=== PATIENT | male | born 1950 | race Caucasian/White ===

== ENCOUNTER 2017-11-18 08:39 | Emergency (ER) | payer MEDICARE, BC ==
[2017-11-18 08:54] VITALS: BP 112/63
--- NOTE | 2017-11-18 09:14 | EDM.PDOC ---
ED HPI GENERAL MEDICAL PROBLEM - General Chief Complaint: General Stated Complaint: BUMP IN MIDDLE OF CHEST Time Seen by Provider: 11/18/17 09:00 Source of Information: Reports: Patient History Limitations: Reports: No Limitations - History of Present Illness INITIAL COMMENTS - FREE TEXT/NARRATIVE: 67-year-old male who has lost several 100 pounds of weight after a gastric bypass years ago was lying in bed this morning having trouble sleeping when he noticed a firm mass in the upper abdomen and wanted it checked out. It is nontender. - Related Data Allergies Allergy/AdvReac Type Severity Reaction Status Date / Time No Known Allergies Allergy Verified 03/20/16 09:37 Home Meds: Home Meds Calcium Citrate 200 mg PO BID 02/22/15 [History] Cyanocobalamin (Vitamin B-12) [Vitamin B-12] 5,000 mcg SL DAILY 02/22/15 [ History] Multivitamin with Minerals [Multiple Vitamin] 1 tab PO BID 02/22/15 [History] Pyridoxine HCl [Vitamin B-6] 100 mg PO DAILY 02/22/15 [History] Thiamine [Vitamin B-1] 100 mg PO DAILY 02/22/15 [History] Cholecalciferol (Vitamin D3) [Vitamin D3] 1 tab PO DAILY 03/17/16 [History] Fludrocortisone [Florinef] 0.1 mg PO DAILY 03/17/16 [History] Vitamin B Complex [B Complex] 1 tab PO DAILY 03/17/16 [History] Past Medical History HEENT History: Reports: Cataract Cardiovascular History: Reports: High Cholesterol Genitourinary History: Reports: None Musculoskeletal History: Reports: Fracture Psychiatric History: Reports: Depression Other Psychiatric History: insomnia Endocrine/Metabolic History: Reports: Diabetes, Type II, Obesity/BMI 30+ Hematologic History: Reports: B12 Deficiency - Infectious Disease History Infectious Disease History: Reports: Other (See Below) Other Infectious Disease History: UNKNOWN - Past Surgical History HEENT Surgical History: Reports: Cataract Surgery GI Surgical History: Reports: Bariatric Procedure, Colonoscopy Other Male Surgeries/Procedures: vasectomy Musculoskeletal Surgical History: Reports: Carpal Tunnel Social & Family History - Tobacco Use Smoking Status *Q: Former Smoker Years of Tobacco use: 15 Packs/Tins Daily: 0 Used Tobacco, but Quit: Yes Month Tobacco Last Used: 15 YEARS AGO Second Hand Smoke Exposure: No - Caffeine Use Caffeine Use: Reports: None - Alcohol Use Days Per Week of Alcohol Use: 0 - Recreational Drug Use Recreational Drug Use: No ED ROS GENERAL - Review of Systems Review Of Systems: See Below Constitutional: Denies: Fever, Chills Respiratory: Denies: Shortness of Breath Cardiovascular: Denies: Chest Pain GI/Abdominal: Denies: Nausea, Vomiting Psychiatric: Reports: Anxiety (Difficulty sleeping) ED EXAM, GENERAL - Physical Exam Exam: See Below Exam Limited By: No Limitations General Appearance: Alert, No Apparent Distress Respiratory/Chest: No Respiratory Distress Cardiovascular: Regular Rate, Rhythm GI/Abdominal: Other (Patient now has a prominent xiphoid process which is his concern. Exam is otherwise normal.) Course - Vital Signs Last Recorded V/S: Last Vital Signs Temp 97.2 F 11/18/17 08:53 Pulse 71 11/18/17 08:53 Resp 16 11/18/17 08:53 BP 112/63 11/18/17 08:53 Pulse Ox 100 11/18/17 08:53 - Re-Assessments/Exams Free Text/Narrative Re-Assessment/Exam: 11/18/17 09:12 Patient was reassured that this is normal anatomy. Departure - Departure Time of Disposition: 09:36 Disposition: Home, Self-Care 01 Condition: Good Clinical Impression: Normal exam, Insomnia - Discharge Information Instructions: Insomnia Referrals: PCP,None [Primary Care Provider] - Forms: ED Department Discharge Care Plan Goals: No treatment needed, follow up with your regular doctor to discuss your difficulty sleeping.
== END 2017-11-18 09:35 | disposition home or self-care (01) ==
LOC: JP.ED 08:39
DX: G47.00 Insomnia, unspecified (principal); E78.00 Pure hypercholesterolemia, unspecified; E11.9 Type 2 diabetes mellitus without complications; E66.9 Obesity, unspecified; Z87.891 Personal history of nicotine dependence; Z79.899 Other long term (current) drug therapy
CPT/HCPCS: 99283; 99285

== ENCOUNTER 2017-12-11 06:42 | Emergency (ER) | payer MEDICARE, BC ==
--- NOTE | 2017-12-11 07:19 | EDM.PDOC ---
ED HPI GENERAL MEDICAL PROBLEM - General Chief Complaint: Chest Pain Stated Complaint: CHEST PAIN Time Seen by Provider: 12/11/17 07:00 Source of Information: Reports: Patient History Limitations: Reports: No Limitations - History of Present Illness INITIAL COMMENTS - FREE TEXT/NARRATIVE: pt arrived with rt sided chest pain and a rash. His rt chest is tender to lite touch. Onset: Other ( last 2 days. ) Duration: Hour(s): Location: Reports: Chest Quality: Reports: Sharp, Stabbing, Other (hurts with lite touch to the area. ) Associated Symptoms: Reports: Chest Pain, Other (pt has had a cough. ) Right Chest Pain Score (Numeric/FACES): 8 - Related Data Allergies Allergy/AdvReac Type Severity Reaction Status Date / Time No Known Allergies Allergy Verified 03/20/16 09:37 Home Meds: Home Meds Calcium Citrate 200 mg PO BID 02/22/15 [History] Cyanocobalamin (Vitamin B-12) [Vitamin B-12] 5,000 mcg SL DAILY 02/22/15 [ History] Multivitamin with Minerals [Multiple Vitamin] 1 tab PO BID 02/22/15 [History] Pyridoxine HCl [Vitamin B-6] 100 mg PO DAILY 02/22/15 [History] Thiamine [Vitamin B-1] 100 mg PO DAILY 02/22/15 [History] Cholecalciferol (Vitamin D3) [Vitamin D3] 1 tab PO DAILY 03/17/16 [History] Fludrocortisone [Florinef] 0.1 mg PO DAILY 03/17/16 [History] Vitamin B Complex [B Complex] 1 tab PO DAILY 03/17/16 [History] metFORMIN HCl [Metformin HCl ER] 12/11/17 [History] Past Medical History HEENT History: Reports: Cataract Cardiovascular History: Reports: High Cholesterol Genitourinary History: Reports: None Musculoskeletal History: Reports: Fracture Psychiatric History: Reports: Depression Other Psychiatric History: insomnia Endocrine/Metabolic History: Reports: Diabetes, Type II, Obesity/BMI 30+ Hematologic History: Reports: B12 Deficiency - Infectious Disease History Infectious Disease History: Reports: Other (See Below) Other Infectious Disease History: UNKNOWN - Past Surgical History HEENT Surgical History: Reports: Cataract Surgery GI Surgical History: Reports: Bariatric Procedure, Colonoscopy Other Male Surgeries/Procedures: vasectomy Musculoskeletal Surgical History: Reports: Carpal Tunnel Social & Family History - Tobacco Use Smoking Status *Q: Never Smoker Years of Tobacco use: 15 Packs/Tins Daily: 0 Used Tobacco, but Quit: Yes Month Tobacco Last Used: 15 YEARS AGO Second Hand Smoke Exposure: No - Caffeine Use Caffeine Use: Reports: None - Alcohol Use Days Per Week of Alcohol Use: 0 - Recreational Drug Use Recreational Drug Use: No ED ROS GENERAL - Review of Systems Review Of Systems: See Below Constitutional: Reports: No Symptoms HEENT: Reports: No Symptoms Respiratory: Reports: Other ( pt has pain in his rt chest. The area is tender to lite touch. ) Cardiovascular: Reports: No Symptoms Endocrine: Reports: No Symptoms GI/Abdominal: Reports: No Symptoms : Reports: No Symptoms Musculoskeletal: Reports: No Symptoms Skin: Reports: No Symptoms Neurological: Reports: No Symptoms Psychiatric: Reports: No Symptoms Hematologic/Lymphatic: Reports: No Symptoms ED EXAM, GENERAL - Physical Exam Exam: See Below Free Text/Narrative:: pt arrived with pain in the rt side of his chest. He states this has been going on for 2 days. He also has a rash which is under the axilla and some on the anterior chest. He hurts when he moves. and takes a deep breath/ Exam Limited By: No Limitations General Appearance: Alert, Moderate Distress Ears: Normal TMs Nose: Normal Inspection Throat/Mouth: Normal Inspection Head: Atraumatic Neck: Normal Inspection Respiratory/Chest: Other (pt has pain with deep breathing and movement. He has a rash under the axilla and some on the anterior chest. He is super sensitive over the area. This rash does have vesicles. Although this was not a classic rash it certainly most likely is shingles. ) Cardiovascular: Regular Rate, Rhythm GI/Abdominal: Soft, Non-Tender (Male) Exam: Deferred Rectal (Males) Exam: Deferred Back Exam: Normal Inspection Extremities: Normal Inspection Neurological: Alert, Oriented, Normal Cognition Psychiatric: Normal Affect Course - Vital Signs Last Recorded V/S: Last Vital Signs Temp 34.0 C L 12/11/17 06:56 Pulse 74 12/11/17 07:48 Resp 18 12/11/17 07:48 BP 124/78 12/11/17 07:48 Pulse Ox 95 12/11/17 07:48 - Orders/Labs/Meds Orders: Active Orders 24 hr Category Date Time Status EKG Documentation Completion [RC] ASDIRECTED Care 12/11/17 06:54 Active Chest 1V Frontal [CR] Stat Exams 12/11/17 07:14 Taken UA W/MICROSCOPIC [URIN] Urgent Lab 12/11/17 07:13 Uncollected EKG 12 Lead [EK] Routine Ther 12/11/17 06:54 Ordered Labs: Laboratory Tests 12/11/17 12/11/17 12/11/17 Range/Units 07:20 07:20 07:20 WBC 4.3 L (4.5-11.0) K/uL RBC 4.25 L (4.30-5.90) M/uL Hgb 13.6 (12.0-15.0) g/dL Hct 39.7 L (40.0-54.0) % MCV 93 (80-98) fL MCH 32 H (27-31) pg MCHC 34 (32-36) % Plt Count 182 (150-400) K/uL Neut % (Auto) 58 (36-66) % Lymph % (Auto) 22 L (24-44) % [place] % (Auto) 17 H (2-6) % Eos % (Auto) 2 (2-4) % Baso % (Auto) 2 H (0-1) % Sodium 141 (140-148) mmol/L Potassium 3.0 L (3.6-5.2) mmol/L Chloride 100 (100-108) mmol/L Carbon Dioxide 31 (21-32) mmol/L Anion Gap 13.0 (5.0-14.0) mmol/L BUN 11 (7-18) mg/dL Creatinine 1.0 (0.8-1.3) mg/dL Est Cr Clr Drug Dosing 73.00 mL/min Estimated GFR (MDRD) > 60 (>60) Glucose 184 H (74-106) mg/dL Calcium 8.5 (8.5-10.1) mg/dL Total Bilirubin 0.7 (0.2-1.0) mg/dL AST 24 (15-37) U/L ALT 26 (12-78) U/L Alkaline Phosphatase 103 (46-116) U/L Troponin I < 0.017 (0.000-0.056) ng/mL Total Protein 6.2 L (6.4-8.2) g/dL Albumin 3.1 L (3.4-5.0) g/dL Globulin 3.1 (2.3-3.5) g/dL Albumin/Globulin Ratio 1.0 L (1.2-2.2) Meds: Medications Discontinued Medications Generic Name Dose Route Start Last Admin Trade Name Freq PRN Reason Stop Dose Admin Potassium Chloride 20 meq 12/11/17 08:15 12/11/17 08:21 Klor-Con M20 PO 12/11/17 08:16 20 meq ONETIME ONE Administration - Re-Assessments/Exams Free Text/Narrative Re-Assessment/Exam: 12/11/17 08:21 pt has a clear chest xray and a normal wbc-- on the low side, and a normal trop. Departure - Departure Time of Disposition: 08:21 Disposition: Home, Self-Care 01 Condition: Fair Clinical Impression: Shingles Instructions: Shingles, [id number] Referrals: PCP,None [Primary Care Provider] - Forms: ED Department Discharge Care Plan Goals: recheck with regular Dr !st week in Dec. He already has an appt at that time. Zovirax 400mg tid for 5 days, norco 5/325 q6h prn for pain. High k diet - My Orders Last 24 Hours: My Active Orders 12/11/17 07:13 UA W/MICROSCOPIC [URIN] Urgent 12/11/17 07:14 Chest 1V Frontal [CR] Stat - Assessment/Plan Last 24 Hours: My Active Orders 12/11/17 07:13 UA W/MICROSCOPIC [URIN] Urgent 12/11/17 07:14 Chest 1V Frontal [CR] Stat
[2017-12-11 07:49] VITALS: BP 124/78
[2017-12-11] MEDS ORDERED: Potassium Chloride 20 MEQ Tab.ER PO ONE (08:15)
--- NOTE | 2017-12-11 09:10 | CR ---
Chest 1V Frontal HISTORY: Chest pain. COMPARISON: 12/30/2014 chest x-ray. FINDINGS: Cardiac size and pulmonary vessels are normal. Slightly rotated film. No focal infiltrates or effusions.
== END 2017-12-11 08:37 | disposition home or self-care (01) ==
LOC: JP.ED 06:42
DX: B02.9 Zoster without complications (principal); R07.1 Chest pain on breathing; E78.00 Pure hypercholesterolemia, unspecified; Z79.84 Long term (current) use of oral hypoglycemic drugs; Z79.899 Other long term (current) drug therapy
CPT/HCPCS: 36415; 71045; 80053; 84484; 85025; 93005; 99285; A9270; 93010; 99283

== ENCOUNTER 2017-12-14 14:35 | Observation (INO) | payer MEDICARE, BC ==
[2017-12-14] MEDS ORDERED: Midazolam 1 MG/ML 2 ML SDV IVPUSH ONE ×2 (14:51→15:29)
[2017-12-14] MEDS ORDERED: Midazolam 1 MG/ML 5 ML SDV ONE (14:52)
[2017-12-14] MEDS ORDERED: Haloperidol Lactate 5 MG/ML SDV IVPUSH ONE ×3 (15:02→16:14)
--- NOTE | 2017-12-14 15:02 | EDM.PDOC ---
ED HPI GENERAL MEDICAL PROBLEM - General Chief Complaint: Behavioral/Psych Stated Complaint: SLURRED SPEECH VIA AMBULANCE Time Seen by Provider: 12/14/17 14:40 Source of Information: Reports: Family, Old Records History Limitations: Reports: Other (sister too flustered to give a good history , patient not able to provide any history, very limited records immediately available. ) - History of Present Illness INITIAL COMMENTS - FREE TEXT/NARRATIVE: 67 yo male has not been taking his medications recently. Has a PHx of depression , orthostatic hypotension, neuropathy, CRF, bariatric surgery, CVA, and AODM. Was seen in the clinic this morning for some mild confusion, orthostasis and was given a liter of NS. His sister took him to [place] and noted he was having some trouble speaking. She then took him home and was able to assist him into the house. With sx's continuing to wax and wane she called 911. EMS said he was hypertensive, other vitals stable. His level of confusion waxed and waned during transport. Onset: Today Onset Date: 12/14/17 Duration: Minutes: Location: Reports: Generalized Quality: Reports: Other (no known pain) Severity: Severe Improves with: Reports: None Worsens with: Reports: Other (? time) Context: Reports: Other (Hx of medical non-compliance and depression. ) Associated Symptoms: Reports: Confusion, Other (trouble speaking). Denies: Fever/Chills Treatments POST OFFICE CLERK: Reports: Other (see below) (none) - Related Data Allergies Allergy/AdvReac Type Severity Reaction Status Date / Time No Known Allergies Allergy Verified 03/20/16 09:37 Home Meds: Home Meds Calcium Citrate 200 mg PO BID 02/22/15 [History] Cyanocobalamin (Vitamin B-12) [Vitamin B-12] 5,000 mcg SL DAILY 02/22/15 [ History] Multivitamin with Minerals [Multiple Vitamin] 1 tab PO BID 02/22/15 [History] Pyridoxine HCl [Vitamin B-6] 100 mg PO DAILY 02/22/15 [History] Thiamine [Vitamin B-1] 100 mg PO DAILY 02/22/15 [History] Cholecalciferol (Vitamin D3) [Vitamin D3] 1 tab PO DAILY 03/17/16 [History] Fludrocortisone [Florinef] 0.1 mg PO DAILY 03/17/16 [History] Vitamin B Complex [B Complex] 1 tab PO DAILY 03/17/16 [History] metFORMIN HCl [Metformin HCl ER] 12/11/17 [History] Past Medical History HEENT History: Reports: Cataract Cardiovascular History: Reports: High Cholesterol Genitourinary History: Reports: None Musculoskeletal History: Reports: Fracture Psychiatric History: Reports: Depression Other Psychiatric History: insomnia Endocrine/Metabolic History: Reports: Diabetes, Type II, Obesity/BMI 30+ Hematologic History: Reports: B12 Deficiency - Infectious Disease History Infectious Disease History: Reports: Other (See Below) Other Infectious Disease History: UNKNOWN - Past Surgical History HEENT Surgical History: Reports: Cataract Surgery GI Surgical History: Reports: Bariatric Procedure, Colonoscopy Other Male Surgeries/Procedures: vasectomy Musculoskeletal Surgical History: Reports: Carpal Tunnel Social & Family History - Tobacco Use Smoking Status *Q: Never Smoker Years of Tobacco use: 15 Packs/Tins Daily: 0 Used Tobacco, but Quit: Yes Month Tobacco Last Used: 15 YEARS AGO Second Hand Smoke Exposure: No - Caffeine Use Caffeine Use: Reports: None - Alcohol Use Days Per Week of Alcohol Use: 0 - Recreational Drug Use Recreational Drug Use: No ED ROS GENERAL - Review of Systems Review Of Systems: Unable To Obtain (except that his sister is able to relate, she does not live with him.) - Physical Exam Exam: See Below Exam Limited By: Other (not able to fully cooperate with neuro exam due to confusion.) General Appearance: Alert, WD/WN, Mild Distress Eye Exam: Bilateral Eye: Normal Inspection Ears: Normal External Exam, Normal Canal, Hearing Grossly Normal Nose: Normal Inspection, Normal Mucosa, No Blood Throat/Mouth: Normal Inspection, Normal Lips, Normal Voice, No Airway Compromise Head Exam: Atraumatic, Normocephalic Neck: Normal Inspection, Supple, Non-Tender Respiratory/Chest: No Respiratory Distress, Lungs Clear, Normal Breath Sounds, No Accessory Muscle Use, Chest Non-Tender Cardiovascular: Regular Rate, Rhythm GI/Abdominal: Normal Bowel Sounds, Soft, Non-Tender, No Distention Neuro Exam (Abbreviated): Alert, CN II-XII Intact, No Motor/Sensory Deficits, Confused, Disoriented, Slow to Respond Back Exam: Normal Inspection. No: CVA Tenderness (R), CVA Tenderness (L) Extremities: Normal Inspection, Normal Range of Motion, Non-Tender, No Pedal Edema Psychiatric: Flat Affect Skin Exam: Warm, Dry, Intact, Normal Color, No Rash EKG INTERPRETATION EKG Date: 12/14/17 Time: 14:35 Rhythm: NSR Rate (Beats/Min): 85 [place]: Normal P-Wave: Present QRS: Normal ST-T: Normal QT: Normal Comparison: No Change EKG Interpretation Comments: Poor R wave progression anterior leads, not new. Course - Vital Signs Text/Narrative:: Dr. Gaytan called, will see in [id number] Last Recorded V/S: Last Vital Signs Temp 35.2 C 12/14/17 14:38 Pulse 95 12/14/17 14:38 Resp 14 12/14/17 14:38 BP 154/86 H 12/14/17 14:38 Pulse Ox 99 12/14/17 14:38 - Orders/Labs/Meds Orders: Active Orders 24 hr Category Date Time Status Cardiac Monitoring [RC] .As Directed Care 12/14/17 14:49 Active EKG Documentation Completion [RC] ASDIRECTED Care 12/14/17 14:49 Active Bradford Catheter Insertion [Insert Urinary Catheter] [OM. Care 12/14/17 15:45 Ordered PC] Q24H Urinary Catheter Assessment [RC] ASDIRECTED Care 12/14/17 15:36 Active Head wo Cont [CT] Stat Exams 12/14/17 14:46 Taken Magnesium Sulfate/Water [Magnesium Sulfate 2 GM in Med 12/14/17 16:18 Active Water 50 ML] 2 gm Premix Bag 1 bag IV ONETIME NS + KCl 20mEq/L [Normal Saline with 20 mEq KCl] 1,000 Med 12/14/17 16:00 Active ml IV ASDIRECTED Potassium Chloride 20 meq Med 12/14/17 16:30 Active Lidocaine 1% [Xylocaine 1%] 2 ml Sodium Chloride 0.9% [Normal Saline] 100 ml IV ONETIME Restraint Initiate Non-VIOL/Non-SD [OM.PC] Stat Oth 12/14/17 15:48 Ordered EKG 12 Lead [EK] Routine Ther 12/14/17 14:48 Ordered Medication Orders Potassium Chloride/Sodium Chloride (Normal Saline With 20 Meq Kcl) 1,000 mls @ 100 mls/hr IV ASDIRECTED TRINIDAD Last Admin: 12/14/17 16:45 Dose: 100 mls/hr Potassium Chloride 20 meq/Lidocaine HCl 2 ml/ Sodium Chloride 112 mls @ 56 mls/ hr IV ONETIME ONE Stop: 12/14/17 18:29 Last Admin: 12/14/17 16:45 Dose: 56 mls/hr Magnesium Sulfate 2 gm/ Premix 50 mls @ 12.5 mls/hr IV ONETIME ONE Stop: 12/14/17 20:17 Last Admin: 12/14/17 16:45 Dose: 12.5 mls/hr Labs: Laboratory Tests 12/14/17 12/14/17 12/14/17 Range/Units 14:50 14:50 15:47 WBC 6.2 (4.5-11.0) K/uL RBC 4.27 L (4.30-5.90) M/uL Hgb 14.0 (12.0-15.0) g/dL Hct 39.9 L (40.0-54.0) % MCV 93 (80-98) fL MCH 33 H (27-31) pg MCHC 35 (32-36) % Plt Count 225 (150-400) K/uL Sodium 138 L (140-148) mmol/L Potassium 2.9 L* (3.6-5.2) mmol/L Chloride 100 (100-108) mmol/L Carbon Dioxide 26 (21-32) mmol/L Anion Gap 14.9 H (5.0-14.0) mmol/L BUN 20 H D (7-18) mg/dL Creatinine 0.9 (0.8-1.3) mg/dL Est Cr Clr Drug Dosing 81.11 mL/min Estimated GFR (MDRD) > 60 (>60) Glucose 173 H (74-106) mg/dL Calcium 8.4 L (8.5-10.1) mg/dL Magnesium (1.8-2.4) mg/dL Troponin I < 0.017 (0.000-0.056) ng/mL Urine Color Yellow Urine Appearance Slightly cloudy Urine pH 7.0 (4.5-8.0) Ur Specific [place] 1.010 (1.008-1.030) Urine Protein Negative (NEGATIVE) mg/dL Urine Glucose (UA) 50 H (NEGATIVE) mg/dL Urine Ketones Negative (NEGATIVE) mg/dL Urine Occult Blood Negative (NEGATIVE) Urine Nitrite Negative (NEGAITVE) Urine Bilirubin Negative (NEGATIVE) Urine Urobilinogen Normal (NORMAL) mg/dL Ur Leukocyte Esterase Negative (NEGATIVE) Urine RBC 0-5 (0-5) Urine WBC 0-5 (0-5) Ur Epithelial Cells Rare Amorphous Sediment Not seen Urine Bacteria Few Urine Mucus Not seen Urine Other 12/14/17 Range/Units 15:48 WBC (4.5-11.0) K/uL RBC (4.30-5.90) M/uL Hgb (12.0-15.0) g/dL Hct (40.0-54.0) % MCV (80-98) fL MCH (27-31) pg MCHC (32-36) % Plt Count (150-400) K/uL Sodium (140-148) mmol/L Potassium (3.6-5.2) mmol/L Chloride (100-108) mmol/L Carbon Dioxide (21-32) mmol/L Anion Gap (5.0-14.0) mmol/L BUN (7-18) mg/dL Creatinine (0.8-1.3) mg/dL Est Cr Clr Drug Dosing mL/min Estimated GFR (MDRD) (>60) Glucose (74-106) mg/dL Calcium (8.5-10.1) mg/dL Magnesium 1.2 L (1.8-2.4) mg/dL Troponin I (0.000-0.056) ng/mL Urine Color Urine Appearance Urine pH (4.5-8.0) Ur Specific [place] (1.008-1.030) Urine Protein (NEGATIVE) mg/dL Urine Glucose (UA) (NEGATIVE) mg/dL Urine Ketones (NEGATIVE) mg/dL Urine Occult Blood (NEGATIVE) Urine Nitrite (NEGAITVE) Urine Bilirubin (NEGATIVE) Urine Urobilinogen (NORMAL) mg/dL Ur Leukocyte Esterase (NEGATIVE) Urine RBC (0-5) Urine WBC (0-5) Ur Epithelial Cells Amorphous Sediment Urine Bacteria Urine Mucus Urine Other Meds: Medications Generic Name Dose Route Start Last Admin Trade Name Freq PRN Reason Stop Dose Admin Potassium Chloride/Sodium Chloride 1,000 mls @ 100 mls/hr 12/14/17 16:00 12/30 16:45 Normal Saline With 20 Meq Kcl IV 100 mls/hr ASDIRECTED TRINIDAD Administration Potassium Chloride 20 meq/ 112 mls @ 56 mls/hr 12/14/17 16:30 12/14/17 16:45 Lidocaine HCl 2 ml/ Sodium IV 12/14/17 18:29 56 mls/hr Chloride ONETIME ONE Administration Magnesium Sulfate 2 gm/ Premix 50 mls @ 12.5 mls/hr 12/14/17 16:18 12/14/17 16:45 IV 12/14/17 20:17 12.5 mls/hr ONETIME ONE Administration Discontinued Medications Generic Name Dose Route Start Last Admin Trade Name Moi PRN Reason Stop Dose Admin Haloperidol Lactate 2 mg 12/14/17 15:02 12/14/17 15:18 Haldol IVPUSH 12/14/17 15:03 2 mg ONETIME ONE Administration Haloperidol Lactate 2 mg 12/14/17 15:30 12/14/17 15:51 Haldol IVPUSH 12/14/17 15:31 2 mg ONETIME ONE Administration Haloperidol Lactate 1 mg 12/14/17 16:14 12/14/17 16:39 Haldol IVPUSH 12/14/17 16:15 1 mg ONETIME ONE Administration Lidocaine 700 mg 12/14/17 16:29 Lidoderm 5% TOP 12/14/17 16:30 ONETIME ONE Midazolam HCl 3 mg 12/14/17 14:51 12/14/17 15:00 Versed 1 Mg/Ml IVPUSH 12/14/17 14:52 3 mg ONETIME ONE Administration Midazolam HCl 2 mg 12/14/17 15:29 12/14/17 15:30 Versed 1 Mg/Ml IVPUSH 12/14/17 15:30 2 mg ONETIME ONE Administration - Radiology Interpretation Free Text/Narrative:: Head CT scan-negative for acute processes CT Results Date: 12/14/17 CT Results Time: 15:15 Departure - Departure Time of Disposition: 17:20 Disposition: Admitted As Inpatient 65 Condition: Poor Clinical Impression: Medical non-compliance, Hypokalemia, Hypomagnesemia, Acute delirium, Elevated glucose level - Discharge Information Referrals: Tamir Brennan PA [Primary Care Provider] - Forms: ED Department Discharge - My Orders Last 24 Hours: My Active Orders 12/14/17 14:46 Head wo Cont [CT] Stat 12/14/17 14:48 EKG 12 Lead [EK] Routine 02/02/18 14:49 Cardiac Monitoring [RC] .As Directed EKG Documentation Completion [RC] ASDIRECTED 12/14/17 15:36 Urinary Catheter Assessment [RC] ASDIRECTED 12/14/17 15:45 Bradford Catheter Insertion [Insert Urinary Catheter] [OM.PC] Q24H 12/14/17 15:48 Restraint Initiate Non-VIOL/Non-SD [OM.PC] Stat 12/14/17 16:00 NS + KCl 20mEq/L [Normal Saline with 20 mEq KCl] 1,000 ml IV ASDIRECTED 12/14/17 16:18 Magnesium Sulfate/Water [Magnesium Sulfate 2 GM in Water 50 ML] 2 gm Premix Bag 1 bag IV ONETIME 12/14/17 16:30 Potassium Chloride 20 meq Lidocaine 1% [Xylocaine 1%] 2 ml Sodium Chloride 0.9 % [Normal Saline] 100 ml IV ONETIME - Assessment/Plan Last 24 Hours: My Active Orders 12/14/17 14:46 Head wo Cont [CT] Stat 12/14/17 14:48 EKG 12 Lead [EK] Routine 12/14/17 14:49 Cardiac Monitoring [RC] .As Directed EKG Documentation Completion [RC] ASDIRECTED 12/14/17 15:36 Urinary Catheter Assessment [RC] ASDIRECTED 12/14/17 15:45 Bradford Catheter Insertion [Insert Urinary Catheter] [OM.PC] Q24H 12/14/17 15:48 Restraint Initiate Non-VIOL/Non-SD [OM.PC] Stat 12/14/17 16:00 NS + KCl 20mEq/L [Normal Saline with 20 mEq KCl] 1,000 ml IV ASDIRECTED 12/14/17 16:18 Magnesium Sulfate/Water [Magnesium Sulfate 2 GM in Water 50 ML] 2 gm Premix Bag 1 bag IV ONETIME 12/14/17 16:30 Potassium Chloride 20 meq Lidocaine 1% [Xylocaine 1%] 2 ml Sodium Chloride 0.9 % [Normal Saline] 100 ml IV ONETIME
[2017-12-14] MEDS ORDERED: Potassium Chloride 20 MEQ in Premix Bag 1 BAG IV ONE (15:48)
[2017-12-14] MEDS ORDERED: NS + KCl 20mEq/L 1,000 ML IV SCH ×2 (16:00→17:58)
[2017-12-14] MEDS ORDERED: Magnesium Sulfate/Water 2 GM in Premix Bag 1 BAG IV ONE (16:18)
[2017-12-14] MEDS ORDERED: Lidocaine 5% 700 MG Patch TOP ONE (16:29)
[2017-12-14] MEDS ORDERED: Potassium Chloride 20 MEQ, Lidocaine 1% 2 ML in Sodium Chloride 0.9% 100 ML IV ONE (16:30)
[2017-12-14] MEDS ORDERED: Polyethylene Glycol 3350 Powder 17 GM Packet PO PRN (17:58)
[2017-12-14] MEDS ORDERED: Enoxaparin 40 MG/0.4 ML Syringe SUBCUT SCH (17:58)
[2017-12-14] MEDS ORDERED: 50% Dextrose in Water 50 ML Syringe IV PRN (17:58)
[2017-12-14] MEDS ORDERED: oxyCODONE 5 MG Tab PO PRN (17:58)
[2017-12-14] MEDS ORDERED: Ondansetron 4 MG/2 ML SDV IV PRN (17:58)
[2017-12-14] MEDS ORDERED: Magnesium Hydroxide 400 MG/5 ML Susp 30 ML Cup PO PRN (17:58)
[2017-12-14] MEDS ORDERED: Haloperidol Lactate 5 MG/ML SDV IVPUSH PRN (17:58)
[2017-12-14] MEDS ORDERED: Acetaminophen 325 MG Tab PO PRN (17:58)
[2017-12-14] MEDS ORDERED: Potassium Chloride 20 MEQ Tab.ER PO ONE ×2 (17:58→22:00)
[2017-12-14] MEDS ORDERED: Glucose Gel 15 GM in 37.5 GM Tube PO PRN (17:58)
[2017-12-14] MEDS ORDERED: Sodium Chloride 0.9% 10 ML Syringe FLUSH PRN (17:58)
--- NOTE | 2017-12-14 18:21 | PCM.HP ---
H&P History of Present Illness - General Date of Service: 12/14/17 Admit Problem/Dx: Source of Information: Family, Old Records, Provider, RN Notes Reviewed History Limitations: Reports: Altered Mental Status (Hyperactive delirium) - History of Present Illness Initial Comments - Free Text/Narative: Mr. Flores is a 67-year-old gentleman who is admitted to observation status through the emergency department for further evaluation and management of hyperactive delirium. Mr. Flores is confused and agitated the present time, unable to provide significant history concerning recent symptoms or events. His sister is present and provides much of the history. She reports that he has become more irritable over the past few years and also progressively more forgetful. There is evidence that he is not been taking his prescribed medications on a regular basis. Yesterday developed acute pain in his right chest, on evaluation in the emergency department was noted to have herpes zoster causing his symptoms. He was prescribed oxycodone and acyclovir. His sister came to see him today to bring him in for an appointment at the clinic and noted that he was more confused and agitated than usual. He does have a known history of orthostatic hypotension and had not been taking his Florinef. Plan was to give him some IV fluids in the clinic, he became more agitated and difficult to manage so he was brought over to the emergency department. Laboratory studies do show significant hypokalemia and hypomagnesemia. There is been no evidence of underlying infection and CT scan of the head without contrast was unremarkable. He has improved during his time in the emergency department and is more conversant but still confused and somewhat agitated. - Related Data Allergies/Adverse Reactions: Allergies Allergy/AdvReac Type Severity Reaction Status Date / Time No Known Allergies Allergy Verified 03/20/16 09:37 Home Medications: Home Meds Calcium Citrate 200 mg PO BID 02/22/15 [History] Cyanocobalamin (Vitamin B-12) [Vitamin B-12] 5,000 mcg SL DAILY 02/22/15 [ History] Multivitamin with Minerals [Multiple Vitamin] 1 tab PO BID 02/22/15 [History] Pyridoxine HCl [Vitamin B-6] 100 mg PO DAILY 02/22/15 [History] Thiamine [Vitamin B-1] 100 mg PO DAILY 02/22/15 [History] Cholecalciferol (Vitamin D3) [Vitamin D3] 1 tab PO DAILY 03/17/16 [History] Fludrocortisone [Florinef] 0.1 mg PO DAILY 03/17/16 [History] Vitamin B Complex [B Complex] 1 tab PO DAILY 03/17/16 [History] metFORMIN HCl [Metformin HCl ER] 12/11/17 [History] Past Medical History HEENT History: Reports: Cataract Cardiovascular History: Reports: High Cholesterol Genitourinary History: Reports: None Musculoskeletal History: Reports: Fracture Psychiatric History: Reports: Depression Other Psychiatric History: insomnia Endocrine/Metabolic History: Reports: Diabetes, Type II, Obesity/BMI 30+ Hematologic History: Reports: B12 Deficiency - Infectious Disease History Infectious Disease History: Reports: Other (See Below) Other Infectious Disease History: UNKNOWN - Past Surgical History HEENT Surgical History: Reports: Cataract Surgery GI Surgical History: Reports: Bariatric Procedure, Colonoscopy Other Male Surgeries/Procedures: vasectomy Musculoskeletal Surgical History: Reports: Carpal Tunnel Social & Family History - Tobacco Use Smoking Status *Q: Never Smoker Years of Tobacco use: 15 Packs/Tins Daily: 0 Used Tobacco, but Quit: Yes Month Tobacco Last Used: 15 YEARS AGO Second Hand Smoke Exposure: No - Caffeine Use Caffeine Use: Reports: None - Alcohol Use Days Per Week of Alcohol Use: 0 - Recreational Drug Use Recreational Drug Use: No H&P Review of Systems - Review of Systems: Review Of Systems: Unable To Obtain General: Reports: ROS unobtainable (Confusion and agitation) Exam - Exam Exam: See Below - Vital Signs Vital Signs: Last Vital Signs Temp 95.4 F 12/14/17 14:38 Pulse 86 12/14/17 17:05 Resp 13 12/14/17 17:05 BP 160/89 H 12/14/17 17:05 Pulse Ox 100 12/14/17 17:05 Weight: 177 lb - Exam Quality Assessment: Urinary Catheter, DVT Prophylaxis General: Alert, Cooperative, Moderate Distress, Other (Agitated) HEENT: Conjunctiva Clear, Hearing Intact, Normal Nasal Septum, Posterior Pharynx Clear, Pupils Equal. No: Mucosa Moist & [place] Neck: Supple, Trachea Midline, +2 Carotid Pulse wo Bruit Lungs: Clear to Auscultation, Normal Respiratory Effort Cardiovascular: Regular Rate, Regular Rhythm, Normal S1, Normal S2. No: Systolic Murmur, Diastolic Murmur GI/Abdominal Exam: Soft, Non-Tender, No Organomegaly, No Distention Back Exam: Normal Inspection, Full Range of Motion Extremities: Non-Tender, No Pedal Edema Skin: Warm, Dry, Rash (Herpes zoster rash involving the right chest) Neurological: Cranial Nerves Intact, Normal Tone, Sensation Intact. No: Focal Deficit Psychiatric: Alert, Agitated - Patient Data Result Diagrams: 12/14/17 14:50 12/14/17 14:50 *Q Meaningful Use (ADM) - VTE *Q VTE Criteria *Q: - VTE Risk Assess *Q Each Risk Factor Represents 1 Point: Obesity ( BMI > 25 kg/m2) Total Score 1 Point Risk Factors: 1 Each Risk Factor Represents 2 Points: Age 60 - 74 Years Total Score 2 Point Risk Factors: 2 Each Risk Factor Represents 3 Points: None Total Score 3 Point Risk Factors: 0 Each Risk Factor Represents 5 Points: None Total Score 5 Point Risk Factors: 0 Venous Thromboembolism Risk Factor Score *Q: 3 - Stroke *Q Stroke Criteria *Q: - AMI *Q AMI Criteria *Q: Problem List Initiated/Reviewed/Updated: Yes Orders Last 24hrs: Active Orders 24 hr Category Date Time Status Patient Status [ADT] Routine ADT 12/14/17 17:58 Active Ambulate [RC] QID Care 12/14/17 17:58 Active Blood Glucose Check, Bedside [RC] QIDACANDBED Care 12/14/17 17:58 Active Cardiac Monitoring [RC] .As Directed Care 12/14/17 17:58 Active Communication Order [RC] STAT Care 12/14/17 17:58 Active Diabetes Education [RC] Click to Edit Care 12/14/17 17:58 Active Height and Weight [RC] DAILY Care 12/14/17 17:58 Active Intake and Output [RC] QSHIFT Care 12/14/17 17:58 Active Notify Provider Vital Signs [RC] ASDIRECTED Care 12/14/17 17:58 Active Notify Provider [RC] PRN Care 12/14/17 17:58 Active Oxygen Therapy [RC] PRN Care 12/14/17 17:58 Active Peripheral IV Care [RC] . DIRECTED Care 12/14/17 17:58 Active Pulse Oximetry [RC] CONTINUOUS Care 12/14/17 17:58 Active Remove Bradford Catheter [Urinary Catheter Removal] [RC] Care 12/14/17 17:58 Active Per Unit Routine Up With Assistance [RC] ASDIRECTED Care 12/14/17 17:58 Active Up to Chair [RC] QID Care 12/14/17 17:58 Active VTE/DVT Education [RC] Per Unit Routine Care 12/14/17 17:58 Active Vital Signs [RC] Q4H Care 12/14/17 17:58 Active Consistent Carbohydrate Diet [DIET] Diet 12/14/17 Dinner Active CBC WITH AUTO DIFF [HEME] AM Lab 12/15/17 05:11 Ordered COMPREHENSIVE METABOLIC PN,CMP [CHEM] AM Lab 12/15/17 05:11 Ordered GLUCOSE POC LAB TO COLLECT [POC] QIDACANDBED Lab 12/14/17 21:00 Ordered GLUCOSE POC LAB TO COLLECT [POC] QIDACANDBED Lab 12/15/17 07:30 Ordered GLUCOSE POC LAB TO COLLECT [POC] QIDACANDBED Lab 12/15/17 11:30 Ordered GLUCOSE POC LAB TO COLLECT [POC] QIDACANDBED Lab 12/15/17 16:30 Ordered GLUCOSE POC LAB TO COLLECT [POC] QIDACANDBED Lab 12/15/17 21:00 Ordered GLUCOSE POC LAB TO COLLECT [POC] QIDACANDBED Lab 12/16/17 07:30 Ordered GLUCOSE POC LAB TO COLLECT [POC] QIDACANDBED Lab 12/16/17 11:30 Ordered GLUCOSE POC LAB TO COLLECT [POC] QIDACANDBED Lab 12/16/17 16:30 Ordered GLUCOSE POC LAB TO COLLECT [POC] QIDACANDBED Lab 12/16/17 21:00 Ordered GLUCOSE POC LAB TO COLLECT [POC] QIDACANDBED Lab 12/17/17 07:30 Ordered GLUCOSE POC LAB TO COLLECT [POC] QIDACANDBED Lab 12/17/17 11:30 Ordered GLUCOSE POC LAB TO COLLECT [POC] QIDACANDBED Lab 12/17/17 16:30 Ordered MAGNESIUM [CHEM] AM Lab 12/15/17 05:11 Ordered TSH ULTRASENSITIVE [CHEM] Timed Lab 12/15/17 05:00 Ordered Acetaminophen [Tylenol] Med 12/14/17 17:58 Active 650 mg PO Q4H PRN Dextrose 50% in Water Med 12/14/17 17:58 Active 50 ml IV ONETIME PRN Dextrose [Glutose 15] Med 12/14/17 17:58 Active 15 gm PO ONETIME PRN Divalproex Sodium Med 12/15/17 08:00 Active 250 mg PO BIDMEALS Docusate Sodium/Sennosides [Senna Plus] Med 12/14/17 17:58 Active 1 tab PO BID PRN Enoxaparin [Lovenox] Med 12/14/17 17:58 Active 40 mg SUBCUT DAILY Haloperidol Lactate [Haldol] Med 12/14/17 17:58 Active 2 mg IVPUSH Q2H PRN Insulin Aspart [NovoLOG] Med 12/14/17 20:00 Active See Protocol SUBCUT QIDACANDBED Magnesium Hydroxide [Milk of Magnesia] Med 12/14/17 17:58 Active 30 ml PO Q12H PRN Magnesium Sulfate/Water [Magnesium Sulfate 2 GM in Med 12/14/17 17:58 Active Water 50 ML] 2 gm Premix Bag 1 bag IV Q6H Melatonin Med 12/14/17 21:00 Active 9 mg PO BEDTIME NS + KCl 20mEq/L [Normal Saline with 20 mEq KCl] 1,000 Med 12/14/17 17:58 Active ml IV ASDIRECTED Ondansetron [Zofran] Med 12/14/17 17:58 Active 4 mg IV Q4H PRN Polyethylene Glycol 3350 [MiraLAX] Med 12/14/17 17:58 Active 17 gm PO DAILY PRN Potassium Chloride [Klor-Con M20] Med 12/14/17 22:00 Once 40 meq PO ONETIME ONE Sodium Chloride 0.9% [Saline Flush] Med 12/14/17 17:58 Active 10 ml FLUSH ASDIRECTED PRN metFORMIN [Glucophage XR] Med 12/14/17 17:58 Active 500 mg PO DAILY oxyCODONE Med 12/14/17 17:58 Active 5 mg PO Q4H PRN Peripheral IV Insertion Adult [OM.PC] Routine Oth 12/14/17 17:58 Ordered Resuscitation Status Routine Resus Stat 12/14/17 17:28 Ordered Medication Orders Acetaminophen (Tylenol) 650 mg PO Q4H PRN PRN Reason: Pain (Mild 1-3)/fever Cholecalciferol (Vitamin D3) 5,000 units PO DAILY [place] Dextrose (Glutose 15) 15 gm PO ONETIME PRN PRN Reason: Hypoglycemia Dextrose/Water (Dextrose 50% In Water) 50 ml IV ONETIME PRN PRN Reason: Hypoglycemia Divalproex Sodium (Divalproex Sodium) 250 mg PO BIDMEALS ON LICENSE OF [facility] Enoxaparin Sodium (Lovenox) 40 mg SUBCUT DAILY ON LICENSE OF [facility] Fludrocortisone Acetate (Florinef) 0.1 mg PO DAILY ON LICENSE OF [facility] Haloperidol Lactate (Haldol) 2 mg IVPUSH Q2H PRN PRN Reason: Agitation Potassium Chloride 20 meq/Lidocaine HCl 2 ml/ Sodium Chloride 112 mls @ 56 mls/ hr IV ONETIME ONE Stop: 12/14/17 18:29 Last Admin: 12/14/17 16:45 Dose: 56 mls/hr Magnesium Sulfate 2 gm/ Premix 50 mls @ 12.5 mls/hr IV ONETIME ONE Stop: 12/14/17 20:17 Last Admin: 12/14/17 16:45 Dose: 12.5 mls/hr Magnesium Sulfate 2 gm/ Premix 50 mls @ 25 mls/hr IV Q6H ON LICENSE OF [facility] Stop: 12/15/17 01:57 Potassium Chloride/Sodium Chloride (Normal Saline With 20 Meq Kcl) 1,000 mls @ 125 mls/hr IV ASDIRECTED ON LICENSE OF [facility] Insulin Aspart (Novolog) 0 unit SUBCUT QIDACANDBED ON LICENSE OF [facility] PRN Reason: Protocol Magnesium Hydroxide (Milk Of Magnesia) 30 ml PO Q12H PRN PRN Reason: Constipation Melatonin (Melatonin) 9 mg PO BEDTIME ON LICENSE OF [facility] Metformin HCl (Glucophage Xr) 500 mg PO DAILY ON LICENSE OF [facility] Multivitamins/Minerals (Thera M Plus) 1 tab PO BID ON LICENSE OF [facility] Non-Formulary Medication (Calcium Citrate [Calcium Citrate]) 200 mg PO BID ON LICENSE OF [facility] Non-Formulary Medication (Cyanocobalamin (Vitamin B-12) [Vitamin B-12]) 5,000 mcg SL DAILY ON LICENSE OF [facility] Ondansetron HCl (Zofran) 4 mg IV Q4H PRN PRN Reason: Nausea/Vomiting Oxycodone HCl (Oxycodone) 5 mg PO Q4H PRN PRN Reason: Pain (moderate 4-6) Polyethylene Glycol (Miralax) 17 gm PO DAILY PRN PRN Reason: Constipation Potassium Chloride (Klor-Con M20) 40 meq PO ONETIME ONE Stop: 12/14/17 22:01 Pyridoxine HCl (Vitamin B6-Pyridoxine) 100 mg PO DAILY ON LICENSE OF [facility] Senna/Docusate Sodium (Senna Plus) 1 tab PO BID PRN PRN Reason: Constipation Sodium Chloride (Saline Flush) 10 ml FLUSH ASDIRECTED PRN PRN Reason: Keep Vein Open Thiamine HCl (Vitamin B-1) 100 mg PO DAILY [place] Vitamin B Complex (Vitamin B Complex) 1 each PO DAILY [place] Assessment/Plan Comment:: ASSESSMENT AND PLAN HYPERACTIVE DELIRIUM-based on history I suspect that he is been in the process of developing dementia over the past few years. Has not been taking his regularly ordered medications and is confused about what he actually takes. He developed herpes zoster of the right chest and was started on oxycodone as well as acyclovir. I suspect combination of medications are contributing to his current delirium. There is no evidence of underlying infection or other significant metabolic abnormality other than the hypokalemia and hypomagnesemia. -IV fluids for hydration -Correction of electrolyte abnormalities -Melatonin 9 mg by mouth daily at bedtime -Depakote 250 mg by mouth twice a day -Haldol 2 mg IV every 2 hours when necessary for agitation -He may require transfer to the senior behavioral unit when medically stable. DEMENTIA-family gives history of progressive confusion and increase in irritability, CT scan without contrast unremarkable. -Outpatient neuropsychiatric evaluation HERPES ZOSTER-new onset, started on acyclovir last night. The acyclovir is likely a contributing factor to current delirium and agitation. -Hold acyclovir -Pain medication as needed HYPOKALEMIA -Oral potassium replacement now and again later tonight -Recheck potassium level in a.m. HYPOMAGNESEMIA -IV magnesium replacement -Recheck magnesium level in a.m. TYPE 2 DIABETES MELLITUS -4 times a day glucometers -Low-dose sliding scale NovoLog -Metformin 500 mg by mouth daily ORTHOSTATIC HYPOTENSION-by history is not been taking his Florinef for the past several months -IV fluids for hydration -Florinef 0.1 mg by mouth daily MAINTENANCE ISSUES -DVT prophylaxis; Lovenox 40 mg subcutaneous daily -GI prophylaxis; not indicated -Bradford catheter; placed in the emergency department, will be removed on admission -Nutrition; consistent carb diet -Nicotine dependence; not required CODE STATUS-FULL CODE ADMISSION STATUS-this patient will be admitted to observation status, expect no more than a one night hospital stay for evaluation and management of problems as outlined above. DISPOSITION-anticipate discharge to home after the hospital stay. PRIMARY CARE PROVIDER-Tamir Brennan
[2017-12-14] MEDS: Magnesium Sulfate/Water 2 GM in Premix Bag 1 BAG IV SCH ×2 (19:31→23:06)
[2017-12-14] MEDS ORDERED: metFORMIN 500 MG Tab PO ONE (20:09)
[2017-12-14] MEDS: Calcium Carbonate/Vitamin D3 1500 MG-400 Units Tab PO SCH (20:33)
[2017-12-14] MEDS: Multivitamins with Iron/Calcium/Folic Acid/Minerals Tab PO SCH (20:33)
[2017-12-14] MEDS: metFORMIN 500 MG Tab.ER PO SCH (20:34)
[2017-12-14] MEDS: Insulin Aspart 100 Units/ML 3 ML Pen SUBCUT SCH (20:40)
[2017-12-14] MEDS ORDERED: Melatonin 3 MG Tab PO SCH (21:00)
[2017-12-15] MEDS: Insulin Aspart 100 Units/ML 3 ML Pen SUBCUT SCH (07:48)
[2017-12-15] MEDS ORDERED: Divalproex Sodium Delayed-Release 250 MG Tab.CR PO SCH (08:00)
[2017-12-15] MEDS: Multivitamins with Iron/Calcium/Folic Acid/Minerals Tab PO SCH (08:37)
[2017-12-15] MEDS: Calcium Carbonate/Vitamin D3 1500 MG-400 Units Tab PO SCH (08:37)
[2017-12-15] MEDS: metFORMIN 500 MG Tab.ER PO SCH ×2 (08:37→08:58)
[2017-12-15] MEDS ORDERED: Cholecalciferol (Vitamin D3) 1,000 Unit Tab PO SCH (09:00)
[2017-12-15] MEDS ORDERED: Cyanocobalamin (Vitamin B12) 1,000 MCG Tab PO SCH (09:00)
[2017-12-15] MEDS ORDERED: Fludrocortisone 0.1 MG Tab PO SCH (09:00)
[2017-12-15] MEDS ORDERED: Thiamine 100 MG Tab PO SCH (09:00)
[2017-12-15] MEDS ORDERED: Vitamin B6-pyridOXINE 50 MG Tab PO SCH (09:00)
[2017-12-15] MEDS ORDERED: Vitamin B Complex Tab PO SCH (09:00)
[2017-12-15 09:32] VITALS: BP 128/92
--- NOTE | 2017-12-15 10:17 | PCM.DCSUM1 ---
Discharge Summary - Hospital Course Brief History: Mr. Flores is a 67-year-old gentleman, admitted through the emergency department with acute hyperactive delirium secondary to medication effect from acyclovir. - Discharge Data Discharge Date: 12/15/17 Discharge Disposition: Home, Self-Care 01 Condition: Fair - Discharge Diagnosis/Problem(s) (1) Hypokalemia SNOMED Code(s): 93275367 ICD Code: E87.6 - HYPOKALEMIA Status: Acute Current Visit: Yes (2) Hypomagnesemia SNOMED Code(s): 454191619 ICD Code: E83.42 - HYPOMAGNESEMIA Status: Acute Current Visit: Yes (3) Acute delirium SNOMED Code(s): 3411995 ICD Code: R41.0 - DISORIENTATION, UNSPECIFIED Status: Acute Current Visit : Yes (4) Shingles SNOMED Code(s): 1569103 ICD Code: B02.9 - ZOSTER WITHOUT COMPLICATIONS Status: Acute Current Visit: No (5) Diabetes mellitus SNOMED Code(s): 84279060 ICD Code: E11.9 - TYPE 2 DIABETES MELLITUS WITHOUT COMPLICATIONS Status: Chronic Current Visit: No - Patient Summary/Data Hospital Course: Mr. Flores is a 67-year-old gentleman who was seen and evaluated at the clinic because of agitation and confusion. He is suspected to be developing dementia, family has noted confusion and difficulty in taking medications regularly. He had been in the emergency department on the evening prior to admission because of right chest wall pain and was found to have shingles. He was started on oxycodone as well as acyclovir. Following morning he was found to be very confused by family and brought into the clinic. Initially was felt he was experiencing dehydration and they were giving him some fluids but the agitation and delirium seem to worsen. He was brought to the emergency department for further evaluation. Laboratory studies showed significant hypokalemia as well as hypomagnesemia. CT scan of the head showed no acute abnormalities. It was identified that the acute delirium was likely secondary to the acyclovir and this was discontinued at the time of admission. He was started on Depakote as well as melatonin, with when necessary Haldol. By the following morning he was felt to be back to baseline with resolution of the delirium and agitation. He will be discharged home with home care services to help manage and organize his medications as well as restorative physical therapy because of weakness. Activity will be as tolerated and he will resume his usual diet and medications. Follow-up appointment will be scheduled with his primary care provider within one week. - Patient Instructions Diet: Diabetic Diet Activity: As Tolerated Other/Special Instructions: Please schedule follow-up appointment with primary care provider within one week. - Discharge Plan Home Medications: Home Meds Calcium Citrate 200 mg PO BID 02/22/15 [History] Cyanocobalamin (Vitamin B-12) [Vitamin B-12] 5,000 mcg SL DAILY 02/22/15 [ History] Multivitamin with Minerals [Multiple Vitamin] 1 tab PO BID 02/22/15 [History] Pyridoxine HCl [Vitamin B-6] 100 mg PO DAILY 02/22/15 [History] Thiamine [Vitamin B-1] 100 mg PO DAILY 02/22/15 [History] Cholecalciferol (Vitamin D3) [Vitamin D3] 1 tab PO DAILY 03/17/16 [History] Fludrocortisone [Florinef] 0.1 mg PO DAILY 03/17/16 [History] Vitamin B Complex [B Complex] 1 tab PO DAILY 03/17/16 [History] Citalopram [Citalopram HBr] 20 mg PO DAILY 12/15/17 [History] Magnesium Oxide 250 mg PO DAILY 12/15/17 [History] atorvaSTATin [Lipitor] 20 mg PO BEDTIME 12/15/17 [History] traZODone 50 mg PO BEDTIME 12/15/17 [History] Referrals: Tamir Brennan PA [Primary Care Provider] - - Patient Data Vitals - Most Recent: Last Vital Signs Temp 96.8 F 12/15/17 07:00 Pulse 79 12/15/17 09:00 Resp 11 L 12/15/17 07:00 BP 128/92 H 12/15/17 09:00 Pulse Ox 99 12/15/17 09:00 Weight - Most Recent: 177 lb I&O - Last 24 hours: Intake & Output 12/14/17 12/15/17 12/15/17 22:59 06:59 14:59 Intake Total 1408 Output Total 1999 1400 Balance -2000 06 Lab Results - Last 24 hrs: Laboratory Results - last 24 hr 12/15/17 12/15/17 12/15/17 Range/Units 05:25 05:25 05:25 WBC 5.5 (4.5-11.0) K/uL RBC 3.83 L (4.30-5.90) M/uL Hgb 12.5 (12.0-15.0) g/dL Hct 36.2 L (40.0-54.0) % MCV 95 (80-98) fL MCH 33 H (27-31) pg MCHC 35 (32-36) % Plt Count 190 (150-400) K/uL Neut % (Auto) 55 (36-66) % Lymph % (Auto) 30 (24-44) % Tyler % (Auto) 14 H (2-6) % Eos % (Auto) 1 L (2-4) % Baso % (Auto) 1 (0-1) % Sodium 142 (140-148) mmol/L Potassium 4.4 (3.6-5.2) mmol/L Chloride 106 (100-108) mmol/L Carbon Dioxide 28 (21-32) mmol/L Anion Gap 8.2 (5.0-14.0) mmol/L BUN 11 (7-18) mg/dL Creatinine 0.7 L (0.8-1.3) mg/dL Est Cr Clr Drug Dosing 104.29 mL/min Estimated GFR (MDRD) > 60 (>60) Glucose 118 H (74-106) mg/dL Calcium 8.3 L (8.5-10.1) mg/dL Magnesium 2.0 D (1.8-2.4) mg/dL Total Bilirubin 0.9 (0.2-1.0) mg/dL AST 23 (15-37) U/L ALT 24 (12-78) U/L Alkaline Phosphatase 87 (46-116) U/L Total Protein 5.6 L (6.4-8.2) g/dL Albumin 2.9 L (3.4-5.0) g/dL Globulin 2.7 (2.3-3.5) g/dL Albumin/Globulin Ratio 1.1 L (1.2-2.2) TSH, Ultra Sensitive 1.530 (0.358-3.740) uIU/mL Med Orders - Current: Current Medications Acetaminophen (Tylenol) 650 mg PO Q4H PRN PRN Reason: Pain (Mild 1-3)/fever Calcium Carbonate (Caltrate 600+D 1500 Mg-400 Units) 1 tab PO BID [facility] Last Admin: 12/15/17 08:37 Dose: 1 tab Cholecalciferol (Vitamin D3) 5,000 units PO DAILY [facility] Last Admin: 12/15/17 08:38 Dose: 5,000 units Cyanocobalamin (Vitamin B12) 5,000 mcg PO DAILY [facility] Last Admin: 12/15/17 08:37 Dose: 5,000 mcg Dextrose (Glutose 15) 15 gm PO ONETIME PRN PRN Reason: Hypoglycemia Dextrose/Water (Dextrose 50% In Water) 50 ml IV ONETIME PRN PRN Reason: Hypoglycemia Divalproex Sodium (Divalproex Sodium) 250 mg PO BIDMEALS [facility] Last Admin: 12/15/17 08:36 Dose: 250 mg Enoxaparin Sodium (Lovenox) 40 mg SUBCUT Q24H [facility] Fludrocortisone Acetate (Florinef) 0.1 mg PO DAILY [facility] Last Admin: 12/15/17 08:37 Dose: 0.1 mg Haloperidol Lactate (Haldol) 2 mg IVPUSH Q2H PRN PRN Reason: Agitation Potassium Chloride/Sodium Chloride (Normal Saline With 20 Meq Kcl) 1,000 mls @ 125 mls/hr IV ASDIRECTED [facility] Last Admin: 12/15/17 02:39 Dose: 125 mls/hr Insulin Aspart (Novolog) 0 unit SUBCUT QIDACANDBED [facility] PRN Reason: Protocol Last Admin: 12/15/17 07:48 Dose: Not Given Magnesium Hydroxide (Milk Of Magnesia) 30 ml PO Q12H PRN PRN Reason: Constipation Melatonin (Melatonin) 9 mg PO BEDTIME [facility] Last Admin: 12/14/17 20:33 Dose: 9 mg Metformin HCl (Glucophage Xr) 500 mg PO DAILY [facility] Last Admin: 12/15/17 08:58 Dose: Not Given Multivitamins/Minerals (Thera M Plus) 1 tab PO BID [facility] Last Admin: 12/15/17 08:37 Dose: 1 tab Ondansetron HCl (Zofran) 4 mg IV Q4H PRN PRN Reason: Nausea/Vomiting Oxycodone HCl (Oxycodone) 5 mg PO Q4H PRN PRN Reason: Pain (moderate 4-6) Pneumococcal Polyvalent Vaccine (Pneumovax 23) 0.5 ml IM .ONCE ONE Stop: 12/16/17 16:01 Polyethylene Glycol (Miralax) 17 gm PO DAILY PRN PRN Reason: Constipation Pyridoxine HCl (Vitamin B6-Pyridoxine) 100 mg PO DAILY [facility] Last Admin: 12/15/17 08:38 Dose: 100 mg Senna/Docusate Sodium (Senna Plus) 1 tab PO BID PRN PRN Reason: Constipation Sodium Chloride (Saline Flush) 10 ml FLUSH ASDIRECTED PRN PRN Reason: Keep Vein Open Thiamine HCl (Vitamin B-1) 100 mg PO DAILY [facility] Last Admin: 12/15/17 08:37 Dose: 100 mg Vitamin B Complex (Vitamin B Complex) 1 each PO DAILY [facility] Last Admin: 12/15/17 08:37 Dose: 1 each Discontinued Medications Enoxaparin Sodium (Lovenox) 40 mg SUBCUT DAILY [facility] Last Admin: 12/14/17 18:46 Dose: 40 mg Haloperidol Lactate (Haldol) 2 mg IVPUSH ONETIME ONE Stop: 12/14/17 15:03 Last Admin: 12/14/17 15:18 Dose: 2 mg Haloperidol Lactate (Haldol) 2 mg IVPUSH ONETIME ONE Stop: 12/14/17 15:31 Last Admin: 12/14/17 15:51 Dose: 2 mg Haloperidol Lactate (Haldol) 1 mg IVPUSH ONETIME ONE Stop: 12/14/17 16:15 Last Admin: 12/14/17 16:39 Dose: 1 mg Potassium Chloride/Sodium Chloride (Normal Saline With 20 Meq Kcl) 1,000 mls @ 100 mls/hr IV ASDIRECTED [facility] Last Admin: 12/14/17 16:45 Dose: 100 mls/hr Potassium Chloride 20 meq/Lidocaine HCl 2 ml/ Sodium Chloride 112 mls @ 56 mls/ hr IV ONETIME ONE Stop: 12/14/17 18:29 Last Admin: 12/14/17 16:45 Dose: 56 mls/hr Magnesium Sulfate 2 gm/ Premix 50 mls @ 12.5 mls/hr IV ONETIME ONE Stop: 12/14/17 20:17 Last Admin: 12/14/17 16:45 Dose: 12.5 mls/hr Magnesium Sulfate 2 gm/ Premix 50 mls @ 25 mls/hr IV Q6H [facility] Stop: 12/15/17 01:57 Last Admin: 12/14/17 23:06 Dose: 25 mls/hr Lidocaine (Lidoderm 5%) 700 mg TOP ONETIME ONE Stop: 12/14/17 16:30 Last Admin: 12/14/17 20:39 Dose: Not Given Metformin HCl (Glucophage) 500 mg PO ONETIME ONE Stop: 12/14/17 20:10 Last Admin: 12/14/17 20:35 Dose: Not Given Midazolam HCl (Versed 1 Mg/Ml) 3 mg IVPUSH ONETIME ONE Stop: 12/14/17 14:52 Last Admin: 12/14/17 15:00 Dose: 3 mg Midazolam HCl (Versed 1 Mg/Ml) 2 mg IVPUSH ONETIME ONE Stop: 12/14/17 15:30 Last Admin: 12/14/17 15:30 Dose: 2 mg Potassium Chloride (Klor-Con M20) 40 meq PO ONETIME ONE Stop: 12/14/17 17:59 Last Admin: 12/14/17 18:45 Dose: 40 meq Potassium Chloride (Klor-Con M20) 40 meq PO ONETIME ONE Stop: 12/14/17 22:01 Last Admin: 12/14/17 21:16 Dose: 40 meq *Q Meaningful Use (DIS) - VTE *Q VTE Criteria *Q: - Stroke *Q Stroke Criteria *Q: - AMI *Q AMI Criteria *Q:
[2017-12-15] MEDS ORDERED: Enoxaparin 40 MG/0.4 ML Syringe SUBCUT SCH (18:00)
[2017-12-16] MEDS ORDERED: Pneumococcal Polyvalent-23 Vaccine 0.5 ML SDV IM ONE (16:00)
== END 2017-12-15 11:44 | disposition home or self-care (01) ==
LOC: JP.ED 14:35 → JP.ICU 17:25
PROVIDERS: ADMIT Hospitalist; ATTEND Hospitalist
DX: R41.0 Disorientation, unspecified (principal); E87.6 Hypokalemia; E83.42 Hypomagnesemia; B02.9 Zoster without complications; T37.5X5A Adverse effect of antiviral drugs, initial encounter; E78.00 Pure hypercholesterolemia, unspecified; F32.9 Major depressive disorder, single episode, unspecified; G47.00 Insomnia, unspecified; E66.9 Obesity, unspecified; E53.8 Deficiency of other specified B group vitamins; Z98.890 Other specified postprocedural states; E11.40 Type 2 diabetes mellitus with diabetic neuropathy, unspecified; Z86.73 Personal history of transient ischemic attack (TIA), and cerebral infarction without residual deficits; Z79.899 Other long term (current) drug therapy; Z68.30 Body mass index [BMI] 30.0-30.9, adult; Z87.891 Personal history of nicotine dependence; Z98.52 Vasectomy status
CPT/HCPCS: 36415; 51702; 70450; 80048; 80053; 81001; 82962; 83735; 84443; 84484; 85025; 85027; 93005; 96361; 96365; 96366; 96375; 96376; 99285; A9270; G0378; J1630; J1650; J2250; J3475; J3480; J7030; 90471; 99217; 99218

== ENCOUNTER 2018-11-28 04:45 | Emergency (ER) | payer MEDICARE ==
[2018-11-28 04:54] VITALS: BP 135/74
--- NOTE | 2018-11-28 05:29 | EDM.PDOC ---
ED HPI GENERAL MEDICAL PROBLEM - General Chief Complaint: Genitourinary Problem Stated Complaint: CATHETER ISSUES Time Seen by Provider: 11/28/18 05:15 Source of Information: Reports: Patient History Limitations: Reports: No Limitations - History of Present Illness INITIAL COMMENTS - FREE TEXT/NARRATIVE: 68-year-old male with an indwelling Bradford catheter for the past week, woke with a catheter malfunction in acute retention of urine. He is very uncomfortable for the last several hours. No fevers or chills. Onset: Unknown/Unsure Treatments MACHINE CONTAINER WASHER: Reports: Other (see below) Other Treatments MACHINE CONTAINER WASHER: none - Related Data Allergies Allergy/AdvReac Type Severity Reaction Status Date / Time acyclovir [From Zovirax] Allergy Change Verified 11/28/18 04:55 Mental Status Home Meds: Home Meds Calcium Citrate 200 mg PO BID 02/22/15 [History] Cyanocobalamin (Vitamin B-12) [Vitamin B-12] 5,000 mcg SL DAILY 02/22/15 [ History] Multivitamin with Minerals [Multiple Vitamin] 1 tab PO BID 02/22/15 [History] Thiamine [Vitamin B-1] 100 mg PO DAILY 02/22/15 [History] Cholecalciferol (Vitamin D3) [Vitamin D3] 1 tab PO DAILY 03/17/16 [History] Fludrocortisone [Florinef] 0.1 mg PO DAILY 03/17/16 [History] Vitamin B Complex [B Complex] 1 tab PO DAILY 03/17/16 [History] Citalopram [Citalopram HBr] 20 mg PO DAILY 12/15/17 [History] Magnesium Oxide 250 mg PO DAILY 12/15/17 [History] atorvaSTATin [Lipitor] 20 mg PO BEDTIME 12/15/17 [History] traZODone 50 mg PO BEDTIME 12/15/17 [History] Gabapentin [Neurontin] 100 mg PO TID 11/12/18 [History] Iron,Carbonyl/Ascorbic Acid [Vitron-C Tablet] 1 tab PO DAILY 11/12/18 [History] Melatonin 2.5 mg PO BEDTIME PRN 11/12/18 [History] metFORMIN HCl [Metformin HCl ER] 500 mg PO DAILY 11/12/18 [History] Past Medical History HEENT History: Reports: Cataract Cardiovascular History: Reports: High Cholesterol Genitourinary History: Reports: None Musculoskeletal History: Reports: Fracture Neurological History: Reports: Other (See Below) Other Neuro History: stroke Psychiatric History: Reports: Depression Other Psychiatric History: insomnia Endocrine/Metabolic History: Reports: Diabetes, Type II, Obesity/BMI 30+ Hematologic History: Reports: B12 Deficiency - Infectious Disease History Infectious Disease History: Reports: Chicken Pox Other Infectious Disease History: UNKNOWN - Past Surgical History HEENT Surgical History: Reports: Cataract Surgery GI Surgical History: Reports: Bariatric Procedure, Colonoscopy Male Surgical History: Reports: Vasectomy Musculoskeletal Surgical History: Reports: Carpal Tunnel Social & Family History - Tobacco Use Smoking Status *Q: Unknown Ever Smoked - Caffeine Use Caffeine Use: Reports: Coffee - Recreational Drug Use Recreational Drug Use: No ED ROS GENERAL - Review of Systems Review Of Systems: See Below Constitutional: Denies: Fever Respiratory: Denies: Shortness of Breath GI/Abdominal: Denies: Nausea, Vomiting : Reports: Urinary Retention ED EXAM, RENAL/ - Physical Exam Exam: See Below Exam Limited By: No Limitations General Appearance: Alert, Mild Distress Respiratory/Chest: No Respiratory Distress (Male) Exam: Suprapubic Fullness Course - Vital Signs Last Recorded V/S: Last Vital Signs Temp 97.3 F 11/28/18 04:50 Pulse 67 11/28/18 04:50 Resp 14 11/28/18 04:50 BP 135/74 11/28/18 04:50 Pulse Ox 99 11/28/18 04:50 - Re-Assessments/Exams Free Text/Narrative Re-Assessment/Exam: 11/28/18 05:27 I briefly examined by the nursing staff revealed he had his catheter bag on upside down and clamped. This was reversed, the clamp released and urine flowed freely. Symptoms resolved after the urine was released. A clean bag was attached and the patient discharged. Departure - Departure Time of Disposition: 06:23 Disposition: Home, Self-Care 01 Condition: Good Clinical Impression: Retention of urine, Malfunction of Bradford catheter - Discharge Information Instructions: Acute Urinary Retention, Male, [id number] Referrals: PCP,None [Primary Care Provider] - Forms: ED Department Discharge Care Plan Goals: Return as needed.
== END 2018-11-28 06:23 | disposition home or self-care (01) ==
LOC: JP.ED 04:45
DX: T83.011A Breakdown (mechanical) of indwelling urethral catheter, initial encounter (principal); R33.9 Retention of urine, unspecified; E78.00 Pure hypercholesterolemia, unspecified; Z79.899 Other long term (current) drug therapy; Z79.84 Long term (current) use of oral hypoglycemic drugs; E11.9 Type 2 diabetes mellitus without complications; F32.9 Major depressive disorder, single episode, unspecified; Z88.1 Allergy status to other antibiotic agents
CPT/HCPCS: 99283

== ENCOUNTER 2018-12-01 05:23 | Emergency (ER) | payer MEDICARE ==
--- NOTE | 2018-12-01 06:19 | EDM.PDOC ---
<Tahira Ramirez - Last Filed: 12/01/18 07:02> ED HPI GENERAL MEDICAL PROBLEM - General Chief Complaint: Genitourinary Problem Stated Complaint: CATH PROBLEMS LOTS OF PAIN Time Seen by Provider: 12/01/18 06:14 Source of Information: Reports: Patient History Limitations: Reports: No Limitations - History of Present Illness INITIAL COMMENTS - FREE TEXT/NARRATIVE: pt had a farmer in for 2 weeks. This was bothering him so he cut part of off and he thinks that it part is still in the bladder. He did not bring in what he had removed. Onset: Today Duration: Hour(s): Location: Reports: Pelvis Associated Symptoms: Reports: No Other Symptoms Penis Pain Score (Numeric/FACES): 7 - Related Data Allergies Allergy/AdvReac Type Severity Reaction Status Date / Time acyclovir [From Zovirax] Allergy Change Verified 12/01/18 05:48 Mental Status Home Meds: Home Meds Calcium Citrate 200 mg PO DAILY 02/22/15 [History] Cyanocobalamin (Vitamin B-12) [Vitamin B-12] 5,000 mcg SL DAILY 02/22/15 [ History] Multivitamin with Minerals [Multiple Vitamin] 1 tab PO BID 02/22/15 [History] Thiamine [Vitamin B-1] 100 mg PO DAILY 02/22/15 [History] Vitamin B Complex [B Complex] 1 tab PO DAILY 03/17/16 [History] Citalopram [Citalopram HBr] 20 mg PO DAILY 12/15/17 [History] atorvaSTATin [Lipitor] 20 mg PO BEDTIME 12/15/17 [History] traZODone 50 mg PO BEDTIME 12/15/17 [History] metFORMIN HCl [Metformin HCl ER] 500 mg PO DAILY 11/12/18 [History] Past Medical History HEENT History: Reports: Cataract Cardiovascular History: Reports: High Cholesterol Genitourinary History: Reports: None Musculoskeletal History: Reports: Fracture Neurological History: Reports: Other (See Below) Other Neuro History: stroke Psychiatric History: Reports: Depression Other Psychiatric History: insomnia Endocrine/Metabolic History: Reports: Diabetes, Type II, Obesity/BMI 30+ Hematologic History: Reports: B12 Deficiency - Infectious Disease History Infectious Disease History: Reports: Chicken Pox, Measles Other Infectious Disease History: UNKNOWN - Past Surgical History HEENT Surgical History: Reports: Cataract Surgery GI Surgical History: Reports: Bariatric Procedure, Colonoscopy Male Surgical History: Reports: Vasectomy Musculoskeletal Surgical History: Reports: Carpal Tunnel Social & Family History - Tobacco Use Smoking Status *Q: Former Smoker Years of Tobacco use: 25 Packs/Tins Daily: 1 Used Tobacco, but Quit: Yes Month/Year Tobacco Last Used: 2012 Second Hand Smoke Exposure: No - Caffeine Use Caffeine Use: Reports: Coffee, Soda - Recreational Drug Use Recreational Drug Use: No ED ROS GENERAL - Review of Systems Review Of Systems: See Below Constitutional: Reports: No Symptoms HEENT: Reports: No Symptoms Respiratory: Reports: No Symptoms Cardiovascular: Reports: No Symptoms Endocrine: Reports: No Symptoms GI/Abdominal: Reports: No Symptoms, Other (pt thinks that he has part of a farmer cath in his bladder. He cut it off just outside of the penis. ) : Reports: Other (pt is havinf pain in the shaft of the penis. ) Musculoskeletal: Reports: No Symptoms ED EXAM, GI/ABD - Physical Exam Exam: See Below Text/Narrative:: Pt arrived stating that he cut his fpley off just outside of the tip of the penis and he thinks he has part of the cath in the bladder. Exam Limited By: No Limitations General Appearance: Alert, Mild Distress Ears: Normal External Exam Nose: Normal Inspection (Male) Exam: Other ( bladder does not feel distended. His bladder scan shows 60 cc in the bladder. ) Course - Vital Signs Last Recorded V/S: Last Vital Signs Temp 95.4 F 12/01/18 09:02 Pulse 70 12/01/18 09:02 Resp 16 12/01/18 09:02 BP 142/68 H 12/01/18 09:02 Pulse Ox 100 12/01/18 09:02 - Orders/Labs/Meds Orders: Active Orders 24 hr Category Date Time Status Bladder Scan [RC] ASDIRECTED Care 12/01/18 05:53 Active Pelvis Non OB Ltd [US] Stat Exams 12/01/18 06:12 Taken Departure - Departure Disposition: DC/Tfer to Other 70 Clinical Impression: Foreign body in bladder and urethra Qualifiers: Encounter type: initial encounter Qualified Code(s): T19.1XXA - Foreign body in bladder, initial encounter - Discharge Information Referrals: PCP,None [Primary Care Provider] - Forms: ED Department Discharge Care Plan Goals: Patient will be transferred by EMS to be [facility] in [place] for continuation of medical care of his extremity lesions, social placement, and urology foreign body issues. <Lucien Stewart - Last Filed: 12/01/18 10:59> Course - Re-Assessments/Exams Free Text/Narrative Re-Assessment/Exam: 12/01/18 07:30 Care turned over from Dr. Ramirez pending ultrasound confirming an interbladder and intraurethral foreign body. The Farmer is still in the bladder with the catheter ending at the base of the penis. This was discussed with on- call urology in [place], and transfer was arranged for removal of the remnants of the Farmer catheter. 12/01/18 08:46 With family located mostly [place], he was requested we try [place] for his urology procedure and medical care. He was kindly accepted by the hospitalist service at [facility] so will be transported by ambulance. Departure - Departure Time of Disposition: 09:38
[2018-12-01 09:02] VITALS: BP 142/68
== END 2018-12-01 09:39 | disposition other institution (70) ==
LOC: JP.ED 05:23
DX: T19.1XXA Foreign body in bladder, initial encounter (principal); T19.0XXA Foreign body in urethra, initial encounter; E78.00 Pure hypercholesterolemia, unspecified; E11.9 Type 2 diabetes mellitus without complications; F32.9 Major depressive disorder, single episode, unspecified; Z79.84 Long term (current) use of oral hypoglycemic drugs; Z79.899 Other long term (current) drug therapy; Z86.73 Personal history of transient ischemic attack (TIA), and cerebral infarction without residual deficits; Z87.891 Personal history of nicotine dependence; Z88.8 Allergy status to other drugs, medicaments and biological substances; Z98.890 Other specified postprocedural states; Z98.49 Cataract extraction status, unspecified eye; Z90.89 Acquired absence of other organs
CPT/HCPCS: 51798; 76857; 99285-25